=== PATIENT | female | born 1960 | race Caucasian/White ===

== ENCOUNTER → 2019-02-19 13:11 | Outpatient (CLI) | payer OTHER, SELFPAY ==
[2019-02-19 14:25] LABS: Blood Urea Nitrogen 21 mg/dL (7-17); Calcium 9.5 mg/dL (8.4-10.2); Carbon Dioxide 26 mmol/L (22-32); Chloride 106 mmol/L (98-107); Estimated Glomerular Filt Rate 57.1 mL/min (>60); Glucose 94 mg/dL (70-100); HEMOLYSIS < 15 (0-50); Potassium 4.6 mmol/L (3.4-5.1); Sodium 138 mmol/L (137-145)
== END ==
PROVIDERS: PCP Nurse Practitioner; Visit Provider Nurse Practitioner
DX: Z01.84 Encounter for antibody response examination (principal); R19.7 Diarrhea, unspecified; E78.5 Hyperlipidemia, unspecified
CPT/HCPCS: 36415; 80048; 80061; 86787

== ENCOUNTER → 2019-06-07 09:25 | Outpatient (CLI) | payer OTHER, SELFPAY ==
--- NOTE | 2019-06-07 | DI.MRI.S_ITS ---
PROCEDURE: MR KNEE LT WO CON INDICATIONS: Stiffness of left knee, not elsewhere classified TECHNIQUE: Noncontrast sagittal PD fast spin echo and T2 fast spin echo with fat saturation, sagittal 3-D FLASH with fat saturation; coronal T1 spin echo and PD fast spin echo with fat saturation, and axial PD fast spin echo with fat saturation through the knee. COMPARISON: None. FINDINGS: Image quality: Excellent. Menisci: Medial extrusion of the medial meniscus is present. Linear oblique high T2 signal intensity traverses the posterior horn medial meniscus, demonstrating superior and inferior articular surface extension. Lateral meniscus is intact. Cruciate ligaments: The anterior and posterior cruciate ligaments appear intact. Medial structures: The medial collateral ligament appears intact. Visualized portions of the pes anserinus tendons appear normal. No abnormal bursal fluid. Lateral structures: The lateral collateral ligament, long and short heads of the biceps femoris tendon appear intact. The popliteus tendon appears normal. Iliotibial band appears normal. Anterior structures: The quadriceps and patellar tendons appear intact. There is moderate lateral patellar subluxation. No femoral trochlear dysplasia or ventral trochlear prominence. There is mild edema in the superolateral aspect of the infrapatellar fat pad. Bones and cartilage: No bone marrow contusions or fractures. Subchondral cysts within the patellar apex and lateral patellar facet are present. Moderate tricompartmental periarticular osteophyte formation is present. Moderate articular cartilage loss diffusely overlies the weightbearing aspects of the medial femoral condyle and medial tibial plateau. Mild articular cartilage loss diffusely overlies the weightbearing aspects of the lateral femoral condyle and lateral tibial plateau. Severe articular cartilage loss overlies the lateral aspect of the lateral patellar facet and lateral femoral trochlea. Joint space: There is a moderate knee joint effusion. No Lawton's cyst. Normal appearing synovial plicae are incidentally noted. IMPRESSION: 1. 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 2. Medial compartment narrowing. 3. Knee joint effusion. 4 profundus consistent with lateral patellofemoral friction syndrome in the appropriate clinical setting. Dictated by: Sukhjinder Elliott M.D. on 06/08/2019 at 9:24 Approved by: Sukhjinder Elliott M.D. on 06/08/2019 at 9:28
== END ==
PROVIDERS: PCP Nurse Practitioner; Referring Provider Nurse Practitioner; Visit Provider Nurse Practitioner
DX: M25.562 Pain in left knee (principal); M25.662 Stiffness of left knee, not elsewhere classified; M17.12 Unilateral primary osteoarthritis, left knee; M25.462 Effusion, left knee
CPT/HCPCS: 73721

== ENCOUNTER 2019-07-14 15:00 | Outpatient (RCR) | payer OTHER, SELFPAY ==
--- NOTE | 2019-07-14 09:32 | PT.OIE ---
Current Diagnoses Unilateral primary osteoarthritis, left knee (07/09/19) Pain in left knee (07/09/19) Stiffness of left knee, not elsewhere classified (07/09/19) Past Medical History (Last Updated 05/28/19 @ 09:08 by ANURAG York) Allergies (Inactive ~1991) Left knee pain (Acute) Measles (Resolved ~1968) Mumps (Resolved ~1969) Past Surgical History (Last Updated 01/02/19 @ 20:51 by Traci Kern) Anesthesia (Resolved) H/O tubal ligation (Resolved ~07/1988) History of nasal septoplasty (Resolved ~10/1992) History of ureter repair (Resolved ~1974) Ureteral stent retained (Resolved) Visit Care Team Role Provider Type ANURAG York Attending Provider Advanced Manager Quality Compliance Primary Care Provider Referring Provider Specialty: [facility] Address: [address] [place] [address] Email: [email or web address] Physical Therapy Initial Evaluation PT-OP-A Visit Information Start: 07/09/19 12:55 Freq: Status: Active Protocol: Document 07/09/19 15:15 [facility] (Rec: 07/14/19 09:29 [facility] [email or web address]) Out-Patient Physical Therapy Visit Information Visit Information Visit Type Initial Evaluation Visit Note 58 year old with left knee OA and pain, weakness Visit Start Time 15:15 Visit Stop Time 16:00 Total Visit Minutes 45 Visit Number 1 Number of CAN SEALER Visits 0 Evaluation Information Evaluation Date 07/09/19 PT-OP-B Current Condition Start: 07/09/19 12:55 Freq: Status: Active Protocol: Document 07/09/19 15:20 [facility] (Rec: 07/09/19 15:39 [facility] [id number]) Current Condition History of Current Condition Onset Date June Current Complaints left sided knee pain, patella tendon and medial knee History of Current Condition Last june 2017 Danisha states she fell on her left knee and landed right on the front of her knee. Her knee progressively got worse. MRI was taken and showed OA of her left knee. She stopped doing javy quon do this past April as it was causing a lot of pain.. It involves a lot of kicking and lunging. Her knee feels better after stopping but still there is pain 3/10 that is a annoyance. Goes to the gym likes the rowing machine and biodex. Has tried leg extension and it bothers her. She has done the leg press and hamstring curls. IF sitting for long periods of time then she is really stiff, has to go up and down stairs sidedways. Can walk for a long time as long as she is not on steep hills Prior Treatments and Tests MRI showed OA Treatment Goals Patient/Caregiver Goals PT GOALS INCLUDE improving strength, Prior Functional Status Baseline Function- ADL's Independent Baseline Function- Mobility Independent PT-OP-C Subjective Start: 07/09/19 12:55 Freq: Status: Active Protocol: Document 07/09/19 15:15 [facility] (Rec: 07/14/19 09:29 [facility] [email or web address]) OP-PT Pain Assessment Location Left Medial Knee Pain Location Details medial knee and patella tendon Scale Used 3 PT-OP-F Manual Assessment Start: 07/09/19 12:55 Freq: Status: Active Protocol: Document 07/09/19 15:15 [facility] (Rec: 07/14/19 09:29 [facility] [email or web address]) Manual Assessments Soft Tissue Assessment Soft Tissue Mobility Assessment tightness of the left ITB, and quads, Tightness and tenderness at the left patella tendon Joint Mobility Assessment Joint Mobility Assessment Full joint ROM left knee PT-OP-G Mobility & Gait Start: 07/09/19 12:55 Freq: Status: Active Protocol: Document 07/09/19 15:15 [facility] (Rec: 07/14/19 09:29 [facility] [email or web address]) OP Gait Assessment Comments Gait Comments trendelenburg gait pattern with left sided weakness, some valgus angle of the left knee , pronation of bilateral arches Stair Climbing Evaluation Comments Stair Climbing Comments step to pattern with right leg leading PT-OP-J Posture/Palpation/Skin Start: 07/09/19 12:55 Freq: Status: Active Protocol: Document 07/09/19 15:15 [facility] (Rec: 07/14/19 09:29 [facility] [email or web address]) Palpation Assessment Location One Palpation Location patella tendon on the left Palpation Findings Soft Tissue Tightness, Tenderness PT-OP-K Range of Motion Start: 07/09/19 12:55 Freq: Status: Active Protocol: Document 07/09/19 15:15 [facility] (Rec: 07/14/19 09:29 [facility] [email or web address]) Knee Goniometric Range of Motion Knee Right Knee ROM WFL Yes Left Knee ROM WFL Yes PT-OP-M Strength Start: 07/09/19 12:55 Freq: Status: Active Protocol: Document 07/09/19 15:15 [facility] (Rec: 07/14/19 09:29 [facility] [email or web address]) Hip Strength Hip Manual Muscle Testing Right Abduction 3+ Fair+ External Rotation 3+ Fair+ Left Abduction 3 Fair External Rotation 3 Fair Knee Strength Knee Manual Muscle Testing Right Flexion (S2) 4 Good Extension (L3) 4 Good Left Flexion (S2) 4- Good- Extension (L3) 3+ Fair+ PT-OP-Q Treatments Start: 07/09/19 12:55 Freq: Status: Active Protocol: Document 07/09/19 15:15 [facility] (Rec: 07/14/19 09:29 [facility] [email or web address]) Cardio Equipment Bicycle (Upright) Duration (Minutes) 5 Resistance 2 Seat Position 5 Therapeutic Exercises Sidelying Exercises 1 Sidelying Exercise Name clam shells Side bilateral Reps/Minutes 3 x 10 reps Standing Exercises 2 Standing Exercise Name standing hip abduction Side bilateral Reps/Minutes 2 x 10 reps 1 Standing Exercise Name standing squat Side bilateral Reps/Minutes 2 x 10 reps Comments focus on form with hips back PT-OP-T Assessment and Plan Start: 07/09/19 12:55 Freq: Status: Active Protocol: Document 07/09/19 15:15 [facility] (Rec: 07/14/19 09:29 [facility] [email or web address]) Physical Therapy Assessment Rehab Potential Rehabilitation Potential Excellent Evaluation Complexity Number of Personal Factors/Comorbidities 0 Number of Body Systems Impaired 1-2 Clinical Presentation at Evaluation Stable Impairments Impairments Activity Tolerance,Balance, Functional Activities, Functional Mobility,Gait,Pain, Soft Tissue Mobility,Strength Other Impairments limited with activities such as squatting, unable to continue tia christiana do that involves kicking activities Goals Three Impairment inablility to perform a squat due to pain and weakness Usp Goal (LTG) Danisha demonstrates good form with a functional squat and is able to perform 10 standing squats without pain LTG Duration 8 weeks Two Impairment weakness of the VMO and gluteus medius Usp Goal (LTG) Danisha demonstrates improved strength of the VMO and gluteus medius to 4/5 or better for improved support of her knee and hip LTG Duration 8 weeks One Impairment left knee pain rated 3/10 in the patella tendon and medial joint line Short Term Goal (STG) Knee pain is reduced to 1-2/10 or less STG Duration 6 weeks Usp Goal (LTG) Danisha is able to walk a mile without a increase in pain LTG Duration 8 weeks plus Assessment Summary Assessment Danisha presents to physical therapy with c/o left sided knee pain rated 3/10 following a fall in April landing on the anterior aspect of her left knee. She has not been able to continue her Javy Christiana Do due to pain with the kicking movements. She has pain with squatting and walking and stairs. With examination today Danisha tests weak in her VMO musculature and lateral gluteus medius left greater than right. She has pronated feet combined with a trendelenburg on the left that can create medial knee pain. She is tender to palpation over the patella tendon and this is most likely due to her fall. Her knee ROM is WNL. Treatment will focus on reducing pain, improving strength and gait. Danisha is a good candidate for PT Physical Therapy Plan Frequency and Duration Frequency of Treatment 2x/Week Duration of Treatment 8 Plan of Care Start Date 07/09/19 Plan of Care End Date 09/03/19 Therapeutic Interventions Therapeutic Interventions Home Exercise Program,Manual Therapy,Neuromuscular Re- education,Patient/Caregiver Education,Self-Care/Home Management,Soft Tissue Mobilization,Taping, Therapeutic Exercises Modalities Cold Pack/Ice Massage, Ultrasound Next Visit Focus/Plan Next Note Type Treatment Note Next Visit Plan patella tendon TFM and patella mobs, quad and VMO strengthening, gluteus medius strengthening, balance training
--- NOTE | 2019-07-14 09:33 | PT.OPPOC ---
Physical, Occupational & Speech Therapy At [facility] Current Diagnoses Unilateral primary osteoarthritis, left knee (07/09/19) Pain in left knee (07/09/19) Stiffness of left knee, not elsewhere classified (07/09/19) Visit Care Team Role Provider Type ANURAG York Attending Provider Advanced Customer Experience Specialist Primary Care Provider Referring Provider Specialty: [facility] Practice Address: [address] [place] [address], [facility] Email: [email or web address] Plan Of Care PT-OP-T Assessment and Plan Start: 07/09/19 12:55 Freq: Status: Active Protocol: Document 07/09/19 15:15 [facility] (Rec: 07/14/19 09:29 [facility] [email or web address]) Physical Therapy Assessment Rehab Potential Rehabilitation Potential Excellent Evaluation Complexity Number of Personal Factors/Comorbidities 0 Number of Body Systems Impaired 1-2 Clinical Presentation at Evaluation Stable Impairments Impairments Activity Tolerance,Balance, Functional Activities, Functional Mobility,Gait,Pain, Soft Tissue Mobility,Strength Other Impairments limited with activities such as squatting, unable to continue tia christiana do that involves kicking activities Goals Three Impairment inability to perform a squat due to pain and weakness Cheese Blender Goal (LTG) Danisha demonstrates good form with a functional squat and is able to perform 10 standing squats without pain LTG Duration 8 weeks Two Impairment weakness of the VMO and gluteus medius Cheese Blender Goal (LTG) Danisha demonstrates improved strength of the VMO and gluteus medius to 4/5 or better for improved support of her knee and hip LTG Duration 8 weeks One Impairment left knee pain rated 3/10 in the patella tendon and medial joint line Short Term Goal (STG) Knee pain is reduced to 1-2/10 or less STG Duration 6 weeks Half-Way Goal (LTG) Danisha is able to walk a mile without a increase in pain LTG Duration 8 weeks plus Assessment Summary Assessment Danisha presents to physical therapy with c/o left sided knee pain rated 3/10 following a fall in April landing on the anterior aspect of her left knee. She has not been able to continue her Kevin Christiana Do due to pain with the kicking movements. She has pain with squatting and walking and stairs. With examination today Danisha tests weak in her VMO musculature and lateral gluteus medius left greater than right. She has pronated feet combined with a trendelenburg on the left that can create medial knee pain. She is tender to palpation over the patella tendon and this is most likely due to her fall. Her knee ROM is WNL. Treatment will focus on reducing pain, improving strength and gait. Danisha is a good candidate for PT Physical Therapy Plan Frequency and Duration Frequency of Treatment 2x/Week Duration of Treatment 8 Plan of Care Start Date 07/09/19 Plan of Care End Date 09/03/19 Therapeutic Interventions Therapeutic Interventions Home Exercise Program,Manual Therapy,Neuromuscular Re- education,Patient/Caregiver Education,Self-Care/Home Management,Soft Tissue Mobilization,Taping, Therapeutic Exercises Modalities Cold Pack/Ice Massage, Ultrasound Next Visit Focus/Plan Next Note Type Treatment Note Next Visit Plan patella tendon TFM and patella mobs, quad and VMO strengthening, gluteus medius strengthening, balance training Plan of Care Dates Plan of Care Start Date 07/09/19 Plan of Care End Date 09/03/19 Electronically Signed by: Luly Angeles, PT 07/14/19 0933 Please Sign and Return: I have reviewed this Plan of Care and certify that the skilled therapy services above are required to meet the patient?s needs. Physician Signature Date Printed Name and Credentials Clinical Instructor Signature Printed Name and Credentials
--- NOTE | 2019-07-14 16:09 | PT.OTN ---
Current Diagnoses Unilateral primary osteoarthritis, left knee (07/14/19) Pain in left knee (07/14/19) Stiffness of left knee, not elsewhere classified (07/14/19) Physical Therapy Treatment Note PT-OP-A Visit Information Start: 07/09/19 12:55 Freq: Status: Active Protocol: Document 07/14/19 14:50 [facility] (Rec: 07/14/19 16:08 [facility] [id number]) Out-Patient Physical Therapy Visit Information Visit Information Visit Type Treatment Note Visit Start Time 14:50 Visit Stop Time 15:46 Total Visit Minutes 56 Visit Number 2 Evaluation Information Evaluation Date 07/09/19 PT-OP-B Current Condition Start: 07/09/19 12:55 Freq: Status: Active Protocol: Document 07/09/19 15:20 [facility] (Rec: 07/09/19 15:39 [facility] [id number]) Current Condition History of Current Condition Onset Date June Current Complaints left sided knee pain, patella tendon and medial knee History of Current Condition Last june 2017 Danisha states she fell on her left knee and landed right on the front of her knee. Her knee progressively got worse. MRI was taken and showed OA of her left knee. She stopped doing javy quon do this past April as it was causing a lot of pain.. It involves a lot of kicking and lunging. Her knee feels better after stopping but still there is pain 3/10 that is a annoyance. Goes to the gym likes the rowing machine and biodex. Has tried leg extension and it bothers her. She has done the leg press and hamstring curls. IF sitting for long periods of time then she is really stiff, has to go up and down stairs sidedways. Can walk for a long time as long as she is not on steep hills Prior Treatments and Tests MRI showed OA Treatment Goals Patient/Caregiver Goals PT GOALS INCLUDE improving strength, Prior Functional Status Baseline Function- ADL's Independent Baseline Function- Mobility Independent PT-OP-C Subjective Start: 07/09/19 12:55 Freq: Status: Active Protocol: Document 07/14/19 14:50 [facility] (Rec: 07/14/19 16:08 [facility] [id number]) OP-PT Subjective Patient Comments Patient Comments States her pain is worse since doing the ex's. Pain is 6-7/ 10. States squat ex caused more pain. PT-OP-F Manual Assessment Start: 07/09/19 12:55 Freq: Status: Active Protocol: Document 07/09/19 15:15 [facility] (Rec: 07/14/19 09:29 [facility]PLAC[facility] BY [facility] [email or web address]) Manual Assessments Soft Tissue Assessment Soft Tissue Mobility Assessment tightness of the left ITB, and quads, Tightness and tenderness at the left patella tendon Joint Mobility Assessment Joint Mobility Assessment Full joint ROM left knee PT-OP-G Mobility & Gait Start: 07/09/19 12:55 Freq: Status: Active Protocol: Document 07/09/19 15:15 [facility] (Rec: 07/14/19 09:29 REPLACED BY [facility] [email or web address]) OP Gait Assessment Comments Gait Comments trendelenburg gait pattern with left sided weakness, some valgus angle of the left knee , pronation of bilateral arches Stair Climbing Evaluation Comments Stair Climbing Comments step to pattern with right leg leading PT-OP-J Posture/Palpation/Skin Start: 07/09/19 12:55 Freq: Status: Active Protocol: Document 07/09/19 15:15 [facility] (Rec: 07/14/19 09:29 REPLACED BY [facility] [email or web address]) Palpation Assessment Location One Palpation Location patella tendon on the left Palpation Findings Soft Tissue Tightness, Tenderness PT-OP-K Range of Motion Start: 07/09/19 12:55 Freq: Status: Active Protocol: Document 07/09/19 15:15 [facility] (Rec: 07/14/19 09:29 [facility]PLACED BY [facility] [email or web address]) Knee Goniometric Range of Motion Knee Right Knee ROM WFL Yes Left Knee ROM WFL Yes PT-OP-M Strength Start: 07/09/19 12:55 Freq: Status: Active Protocol: Document 07/09/19 15:15 [facility] (Rec: 07/14/19 09:29 REPLACED BY [facility] [email or web address]) Hip Strength Hip Manual Muscle Testing Right Abduction 3+ Fair+ External Rotation 3+ Fair+ Left Abduction 3 Fair External Rotation 3 Fair Knee Strength Knee Manual Muscle Testing Right Flexion (S2) 4 Good Extension (L3) 4 Good Left Flexion (S2) 4- Good- Extension (L3) 3+ Fair+ PT-OP-Q Treatments Start: 07/09/19 12:55 Freq: Status: Active Protocol: Document 07/14/19 14:50 [facility] (Rec: 03/10/20 16:08 [facility] [id number]) Therapeutic Exercises Supine Exercises 3 Supine Exercise Name SAQ Side left Resistance 5# Reps/Minutes 15 x 2 2 Supine Exercise Name SLR @ 12 & 10 O'Clock foot position Reps/Minutes 15x each position 1 Supine Exercise Name QS Side left Reps/Minutes 15x Sidelying Exercises 1 Sidelying Exercise Name clam shells Side bilateral Reps/Minutes 3 x 10 reps Manual Therapy Treatment Soft Tissue Mobilization PFM Body Location L infrapatellar tendon Friction massage Mobilization Type Cross-Friction Intensity/Depth Moderate Body Position Supine Joint Mobilizations L Patellar Mob Joint L patellar mob Direction all directions Grade II Body Position Supine Reps/Duration 2' Taping 2 Body Location L infrapatellar tendon Treatment Focus Space correction Type of Tape Kinesio Tape Skin Inspection Good Comments 3 I-strips over knee while in full flexion. 1 Body Location L medial knee Treatment Focus Stability Type of Tape Kinesio Tape Skin Inspection Good Comments 2 I-Strips crossing at medial knee Manual Techniques 1 Type MWM with 4 step up Body Location L knee Body Position Going up 4 step Reps/Duration 2x, 10x Comments AP of Tib/Fib & PA of Distal Femur Self-Care/Home Management Treatment Education Patient Education Home Exercise Program Other Education Instructed pt in safe and proper removal of K-tape to give 24hr skin rest from tape. Educated pt in skin allergic reaction symptoms with I/S to remove immediately if symptoms present. Activities Self-Care/Home Management Activities Pt I/S to hold on squat exercise and to do QS, SAQ & 12 & 10 O'Clock SLR. PT-OP-R Modalities Start: 07/14/19 14:30 Freq: Status: Active Protocol: Document 07/14/19 14:50 [facility] (Rec: 07/14/19 16:08 [facility] [id number]) Hot Pack/Cold Pack Treatment Cold Pack Location L knee Patient Position Hooklying Treatment Duration (minutes) 10 Comments Cryocuff Ultrasound Therapy Treatment L knee Treatment Duration (minutes) 8 Patient Position Supine Frequency Setting (mHz) 1 Duty Cycle 50% Intensity Setting (w/cm2) 1.0 Comments US to L medial and infrapatellar PT-OP-T Assessment and Plan Start: 07/09/19 12:55 Freq: Status: Active Protocol: Document 07/14/19 14:50 [facility] (Rec: 07/14/19 16:08 [facility] [id number]) Physical Therapy Assessment Goals Three Impairment inablility to perform a squat due to pain and weakness Correction Goal (LTG) Danisha demonstrates good form with a functional squat and is able to perform 10 standing squats without pain LTG Duration 8 weeks Two Impairment weakness of the VMO and gluteus medius Correction Goal (LTG) Danisha demonstrates improved strength of the VMO and gluteus medius to 4/5 or better for improved support of her knee and hip LTG Duration 8 weeks One Impairment left knee pain rated 3/10 in the patella tendon and medial joint line Short Term Goal (STG) Knee pain is reduced to 1-2/10 or less STG Duration 6 weeks Automated Process Operator Goal (LTG) Danisha is able to walk a mile without a increase in pain LTG Duration 8 weeks plus Assessment Summary Assessment L knee pain 6-7/10 today due to shallow squat ex; therefore DC'd shallow squats for HEP. Pt appears to have movement dysfunction with Femur too far foward on Tib/Fib during knee extension. Pt's infrapatellar pain appears to be in the area of the fat pads today, but decreased after Ultrasound. She was able to step up a 4 step without pain during MWM, 6 step caused pain. Patella tendon did not appear to need TFM due to pain more at fat pads, and patella appeared to show equal mobility today. Physical Therapy Plan Frequency and Duration Frequency of Treatment 2x/Week Duration of Treatment 8 Plan of Care Start Date 07/09/19 Plan of Care End Date 09/03/19 Next Visit Focus/Plan Next Note Type Treatment Note Next Visit Plan Issue HEP of medial quad strengthening (QS, SAQ & SLR @ 12 & 10 O'Clock foot position ). Assess response to K-tape and continue as needed. Quad and VMO strengthening, gluteus medius strengthening, balance training.
--- NOTE | 2020-01-11 14:05 | PT.OPDS ---
Current Diagnoses Unilateral primary osteoarthritis, left knee (07/14/19) Pain in left knee (07/14/19) Stiffness of left knee, not elsewhere classified (07/14/19) Visit Care Team Role Provider Type ANURAG [place] Attending Provider [employer] Specialist Primary Care Provider Referring Provider Specialty: Family Practice Address: [address] [place] [address], [id number] Email: [email or web address] Visit Number Visit Number 2 Discharge Summary PT-OP-B Current Condition Start: 07/09/19 12:55 Freq: Status: Active Protocol: Document 07/09/19 15:20 AMH (Rec: 07/09/19 15:39 AMH [id number]) Current Condition History of Current Condition Onset Date June Current Complaints left sided knee pain, patella tendon and medial knee History of Current Condition Last june 2017 Danisha states she fell on her left knee and landed right on the front of her knee. Her knee progressively got worse. MRI was taken and showed OA of her left knee. She stopped doing javy quon do this past April as it was causing a lot of pain.. It involves a lot of kicking and lunging. Her knee feels better after stopping but still there is pain 3/10 that is a annoyance. Goes to the gym likes the rowing machine and [employer]. Has tried leg extension and it bothers her. She has done the leg press and hamstring curls. IF sitting for long periods of time then she is really stiff, has to go up and down stairs sidedways. Can walk for a long time as long as she is not on steep hills Prior Treatments and Tests MRI showed OA Treatment Goals Patient/Caregiver Goals PT GOALS INCLUDE improving strength, Prior Functional Status Baseline Function- ADL's Independent Baseline Function- Mobility Independent PT-OP-C Subjective Start: 07/09/19 12:55 Freq: Status: Active Protocol: Document 07/14/19 14:50 LRN (Rec: 07/14/19 16:08 LRN [id number]) OP-PT Subjective Patient Comments Patient Comments States her pain is worse since doing the ex's. Pain is 6-7/ 10. States squat ex caused more pain. PT-OP-F Manual Assessment Start: 07/09/19 12:55 Freq: Status: Active Protocol: Document 07/09/19 15:15 AMH (Rec: 07/14/19 09:29 [facility] [id number]) Manual Assessments Soft Tissue Assessment Soft Tissue Mobility Assessment tightness of the left ITB, and quads, Tightness and tenderness at the left patella tendon Joint Mobility Assessment Joint Mobility Assessment Full joint ROM left knee PT-OP-G Mobility & Gait Start: 07/09/19 12:55 Freq: Status: Active Protocol: Document 07/09/19 15:15 AMH (Rec: 07/14/19 09:29 [facility] [id number]) OP Gait Assessment Comments Gait Comments trendelenburg gait pattern with left sided weakness, some valgus angle of the left knee , pronation of bilateral arches Stair Climbing Evaluation Comments Stair Climbing Comments step to pattern with right leg leading PT-OP-J Posture/Palpation/Skin Start: 07/09/19 12:55 Freq: Status: Active Protocol: Document 07/09/19 15:15 AMH (Rec: 07/14/19 09:29 [facility] [id number]) Palpation Assessment Location One Palpation Location patella tendon on the left Palpation Findings Soft Tissue Tightness, Tenderness PT-OP-K Range of Motion Start: 07/09/19 12:55 Freq: Status: Active Protocol: Document 07/09/19 15:15 AMH (Rec: 07/14/19 09:29 [facility] [id number]) Knee Goniometric Range of Motion Knee Right Knee ROM WFL Yes Left Knee ROM WFL Yes PT-OP-M Strength Start: 07/09/19 12:55 Freq: Status: Active Protocol: Document 07/09/19 15:15 AMH (Rec: 07/14/19 09:29 [facility] [id number]) Hip Strength Hip Manual Muscle Testing Right Abduction 3+ Fair+ External Rotation 3+ Fair+ Left Abduction 3 Fair External Rotation 3 Fair Knee Strength Knee Manual Muscle Testing Right Flexion (S2) 4 Good Extension (L3) 4 Good Left Flexion (S2) 4- Good- Extension (L3) 3+ Fair+ PT-OP-T Assessment and Plan Start: 07/09/19 12:55 Freq: Status: Active Protocol: Document 01/11/20 14:01 AMH (Rec: 01/11/20 14:05 [facility] [id number]) Physical Therapy Assessment Assessment Summary Assessment The patient has not been seen in PT since July 13 due to the Covid 19 pandemic. She request to be DC from PT at this time. Physical Therapy Plan Discharge Physical Therapy Discharge Reasons Patient Request
== END 2020-01-12 10:48 ==
LOC: PHYS 15:00
PROVIDERS: PCP Nurse Practitioner; Referring Provider Nurse Practitioner; Visit Provider Nurse Practitioner
DX: M25.662 Stiffness of left knee, not elsewhere classified (principal); M25.562 Pain in left knee; M17.12 Unilateral primary osteoarthritis, left knee
CPT/HCPCS: 97010; 97035; 97110; 97140; 97161

== ENCOUNTER 2020-04-13 10:23 | Emergency (ER) | payer OTHER, SELFPAY ==
--- NOTE | 2020-04-13 10:26 | DI.US.S_ITS ---
PROCEDURE: US PERIPH VENOUS LOW EXTREM LT INDICATIONS: LEFT LEG SWELLING TECHNIQUE: Real-time imaging, as well as color and pulse Doppler interrogation, were performed of the lower extremity deep veins from the inguinal ligament to the popliteal fossa. COMPARISON: None. FINDINGS: The common femoral, femoral and popliteal veins are normally compressible, and free of intraluminal thrombus. Color and pulse Doppler demonstrate normal phasic intraluminal flow. There is normal augmentation response to distal compression maneuver. Soft tissue edema can be seen within the region of the calf and ankle. IMPRESSION: Negative for deep venous thrombosis. Dictated by: Ganga Duncan M.D. on 04/13/2020 at 10:01 Approved by: Ganga Duncan M.D. on 04/13/2020 at 10:01
[2020-04-13 10:56] VITALS: BP 136/85; PULSE 80; RESP 16; TEMP 36.7; O2SAT 100
[2020-04-13 12:22] LABS: Add Manual Diff / Slide Review NO; Basophils Absolute Auto 0 /uL (0-100); Eosinophils Absolute Auto 200 /uL (0-450); Eosinophils Percent Auto 4.6 % (2-4); Hematocrit 44.2 % (36-46); Hemoglobin 14.5 g/dL (12.0-16.0); Lymphocytes Absolute Auto 1400 /uL (1100-4500); Lymphocytes Percent Auto 28.6 % (25-40); Mean Corpuscular HGB Conc 32.8 % (30-36); Mean Corpuscular Hemoglobin 29.7 PG (26-34); Mean Corpuscular Volume 90.7 fL (80-100); Monocytes Absolute Auto 300 /uL (0-900); Monocytes Percent Auto 6.5 % (3-14); Neutrophils Absolute Auto 2800 /uL (1500-7000); Neutrophils Percent Auto 59.3 % (50-75); Platelet Count 208 X10^3/uL (150-400); Red Blood Cell Count 4.87 X10^6/uL (4.0-5.2); Red Cell Distribution Width 14.1 % (11.6-14.8); White Blood Cell Count 4.7 X10^3/uL (4.5-11.0)
[2020-04-13 12:30] LABS: Prothrombin Time 11.1 SECONDS (10.1-12.7)
[2020-04-13 12:33] LABS: PTT Partial Thromboplastin Tim 29 SECONDS (26.4-36.2)
[2020-04-13 12:39] LABS: BUN Creatinine Ratio 18.9 (6-22); Blood Urea Nitrogen 18 mg/dL (7-17); Calcium 10.6 mg/dL (8.4-10.2); Carbon Dioxide 27 mmol/L (22-32); Chloride 104 mmol/L (98-107); Estimated Glomerular Filt Rate > 60.0 mL/min (>60); Glucose 92 mg/dL (70-100); HEMOLYSIS < 15 (0-50); Sodium 141 mmol/L (137-145)
[2020-04-13 12:46] LABS: NT-proBNP (BNP-Adult 18+) 44 pg/mL (<125)
[2020-04-13 13:06] VITALS: BP 130/84; PULSE 78; RESP 16; O2SAT 97
--- NOTE | 2020-04-13 13:49 | ED.EXTPRO ---
HPI - Extremity Problem <Nicolette AlmazanBARBP-BC - Last Filed: 04/13/20 16:13> General Chief complaint: Extremity Problem,Nontraumatic Stated complaint: Swelling in lower Left leg Time Seen by Provider: 04/13/20 10:25 Source: patient Mode of arrival: Wheelchair Limitations: no limitations History of Present Illness HPI Narrative: The patient is a 59-year-old female nonsmoker with history of hyperglycemia and GERD who presents with a chief complaint of left lower leg swelling and pain for the past 4 days. She denies any personal history of blood clots. She denies any hormone treatments, she denies any recent episodes of immobility such as flights or hospitalizations. She saw her primary care provider this morning he was concerned about a DVT. She states that she usually wears pressure socks, but has been having trouble getting her left pressure sock on due to the swelling. She denies any redness. She denies any falls or trauma. She denies any chest pain or shortness of breath. Related Data Home Medications Medication Instructions Recorded Confirmed aspirin 325 mg PO QDAY #0 09/26/16 04/13/20 azelastine 2 spray INTRANASAL BID #0 09/26/16 04/13/20 omega 2-hac-yyd-fish oil [Fish Oil] 1,000 mg PO Q DAY #0 09/26/16 04/13/20 Lactobac See Rx Instructions PO .COMPLEX 10/24/17 04/13/20 41-Bifido.bifidum,lactis-FOS 111 cap mg(25 billion cell) capsule methylcellulose (laxative) 500 mg 500 mg PO BID tab 10/24/17 04/13/20 tablet niacin 100 mg tablet 100 mg PO DAILY 02/19/19 04/13/20 antiarthritic combination no.2 900 mg PO 05/28/19 04/13/20 mg tablet Previous Rx's Medication Instructions Recorded metronidazole 1 % topical gel 1 applictn TOP BID #60 gram 12/08/18 atorvastatin 20 mg tablet 20 mg PO HS #90 tab 07/15/19 hydrochlorothiazide 25 mg tablet 12.5 mg PO QDAY #45 tab 07/15/19 Allergies Allergy/AdvReac Type Severity Reaction Status Date / Time sulfamethoxazole Allergy Unknown HIVES, Verified 04/13/20 09:47 [From BACTRIM] SORES IN MY THROAT trimethoprim [From BACTRIM] Allergy Unknown HIVES, Verified 04/13/20 09:47 SORES IN MY THROAT guaifenesin [From Mucinex] Allergy Verified 04/13/20 09:47 Review of Systems <ROSSY Nuñez - Last Filed: 04/13/20 16:13> Review of Systems Narrative: GENERAL: Denies chills, fatigue, malaise, fever, sweats. HEENT: Denies sinus pain, ear pain, sore throat, difficulty swallowing, dizziness. RESPIRATORY: Denies dyspnea, cough, wheezing, hemoptysis, sputum. CARDIOVASCULAR: Denies chest pain, palpitations, orthopnea, edema, GASTROINTESTINAL: Denies nausea, vomiting, abdominal pain, diarrhea, constipation, melena. : Denies dysuria, frequency, incontinence, hematuria, urinary retention. MUSCULOSKELETAL: See HPI SKIN: Denies rash, skin lesions, or other NEUROLOGIC: Denies weakness, headache, numbness, change in speech, confusion, seizures, incoordination. PSYCHIATRIC: No concerning psychosocial issues. 12 point review of systems is negative except for those stated above Patient History <ROSSY Nuñez - Last Filed: 04/13/20 16:13> Medical History Allergies (~1991) Left knee pain Measles (~1968) Mumps (~1969) Surgical History Anesthesia H/O tubal ligation (~07/1988) History of nasal septoplasty (~10/1992) History of ureter repair (~1974) Ureteral stent retained Family History Mother Hypertension Heart disease Hyperlipidemia Father Alcoholism Brother Diabetes mellitus Hyperlipidemia Hypertension Sister Hyperlipidemia Hypertension Grandfather Heart disease Grandmother Heart disease Hyperlipidemia Hypertension Social History Smoking Status: Never smoker Smoking Status: Never smoker alcohol intake frequency: a few times a month Substance Use Type: does not use Exam <ROSSY Nuñez - Last Filed: 04/13/20 16:13> Narrative Exam Narrative: GENERAL: This is a well-nourished, well-developed patient, in no acute distress HEAD: Atraumatic. Normocephalic. No temporal or scalp tenderness. EYES: Pupils equal round and reactive. Extraocular motions intact. No scleral icterus. No injection or drainage. ENT: Nose without bleeding, purulent drainage or septal hematoma. Wearing a mask Uvula midline. Airway patent. NECK: Trachea midline. No JVD or lymphadenopathy. Supple, nontender, no meningeal signs. CARDIOVASCULAR: Regular rate and rhythm RESPIRATORY: Clear to auscultation. Breath sounds equal bilaterally. No wheezes, rales, or rhonchi. No cough. No increased respiratory effort. No accessory muscle use. EXTREMITIES: Bilateral pedal pulses intact. No erythema rash or abrasions noted over left lower leg. Has slight peripheral edema noted bilaterally, left worse than right. BACK: Nontender without deformity or crepitance. No flank tenderness. NEURO: AOx3. Stable gait. SKIN: No rash or erythema on visible skin Initial Vital Signs Initial Vital Signs: Vital Signs Temperature 98.0 F 04/13/20 10:56 Pulse Rate 80 04/13/20 10:56 Respiratory Rate 16 04/13/20 10:56 Blood Pressure 136/85 04/13/20 10:56 Pulse Oximetry 100 04/13/20 10:56 <Kris Ralph DO - Last Filed: 04/13/20 16:25> Initial Vital Signs Initial Vital Signs: Vital Signs Temperature 98.0 F 04/13/20 10:56 Pulse Rate 80 04/13/20 10:56 Respiratory Rate 16 04/13/20 10:56 Blood Pressure 136/85 04/13/20 10:56 Pulse Oximetry 100 04/13/20 10:56 Scores <FRANCY Nuñez - Last Filed: 04/13/20 16:13> GCS Perez coma scale eye opening: Spontaneous [place] coma scale verbal response: Orientated Perez coma scale motor response: Obey commands [place] coma scale total score: 15 Course <FRANCY Nuñez - Last Filed: 04/13/20 16:13> Orders Ordered: ED Orders 04/13/20 10:26 US periph venous low extrem lt Stat 04/13/20 12:10 Basic Metabolic Panel Stat Complete Blood Count AUTO DIFF Stat NT-proBNP (BNP-Adult 18+) Stat Partial Thromboplastin Time Stat Prothrombin Time INR Stat Vital Signs Vital signs: Vital Signs - 8 hr 04/13/20 10:56 04/13/20 13:06 Temperature 98.0 F Pulse Rate 80 78 Respiratory Rate 16 16 Blood Pressure 136/85 130/84 Pulse Oximetry 100 97 <Kris Ralph DO - Last Filed: 04/13/20 16:25> Orders Ordered: ED Orders 04/13/20 10:26 US periph venous low extrem lt Stat 04/13/20 12:10 Basic Metabolic Panel Stat Complete Blood Count AUTO DIFF Stat NT-proBNP (BNP-Adult 18+) Stat Partial Thromboplastin Time Stat Prothrombin Time INR Stat Vital Signs Vital signs: Vital Signs - 8 hr 04/13/20 10:56 04/13/20 13:06 Temperature 98.0 F Pulse Rate 80 78 Respiratory Rate 16 16 Blood Pressure 136/85 130/84 Pulse Oximetry 100 97 MDM - Extremity (Nontraumatic) <VERONICA Nuñez-BC - Last Filed: 04/13/20 16:13> Lab Data Result diagrams: 04/13/20 12:10 04/13/20 12:10 Labs: Lab Results 04/13/20 04/13/20 04/13/20 Range/Units 12:10 12:10 12:10 WBC 4.7 (4.5-11.0) X10^3/uL RBC 4.87 (4.0-5.2) X10^6/uL Hgb 14.5 (12.0-16.0) g/dL Hct 44.2 (36-46) % MCV 90.7 (80-100) fL MCH 29.7 (26-34) PG MCHC 32.8 (30-36) % RDW 14.1 (11.6-14.8) % Plt Count 208 (150-400) X10^3/uL Neut % (Auto) 59.3 (50-75) % Lymph % (Auto) 28.6 (25-40) % Tate % (Auto) 6.5 (3-14) % Eos % (Auto) 4.6 H (2-4) % Baso % (Auto) 1.0 (0-2) % Neut # (Auto) 2800 (1478-4418) /uL Lymph # (Auto) 1400 (1339-5669) /uL Tate # (Auto) 300 (0-900) /uL Eos # (Auto) 200 (0-450) /uL Baso # (Auto) 0 (0-100) /uL PT 11.1 (10.1-12.7) SECONDS INR 1.0 (0.9-1.3) APTT 29 (26.4-36.2) SECONDS Sodium 141 (137-145) mmol/L Potassium 4.0 (3.4-5.1) mmol/L Chloride 104 (98-107) mmol/L Carbon Dioxide 27 (22-32) mmol/L BUN 18 H (7-17) mg/dL Creatinine 0.95 (0.52-1.04) mg/dL Estimated GFR > 60.0 (>60) mL/min BUN/Creatinine Ratio 18.9 (6-22) Glucose 92 (70-100) mg/dL Calcium 10.6 H (8.4-10.2) mg/dL NT-Pro-B Natriuret Pep (<125) pg/mL 04/13/20 Range/Units 12:10 WBC (4.5-11.0) X10^3/uL RBC (4.0-5.2) X10^6/uL Hgb (12.0-16.0) g/dL Hct (36-46) % MCV (80-100) fL MCH (26-34) PG MCHC (30-36) % RDW (11.6-14.8) % Plt Count (150-400) X10^3/uL Neut % (Auto) (50-75) % Lymph % (Auto) (25-40) % Tate % (Auto) (3-14) % Eos % (Auto) (2-4) % Baso % (Auto) (0-2) % Neut # (Auto) (7405-7768) /uL Lymph # (Auto) (8016-5021) /uL Tate # (Auto) (0-900) /uL Eos # (Auto) (0-450) /uL Baso # (Auto) (0-100) /uL PT (10.1-12.7) SECONDS INR (0.9-1.3) APTT (26.4-36.2) SECONDS Sodium (137-145) mmol/L Potassium (3.4-5.1) mmol/L Chloride (98-107) mmol/L Carbon Dioxide (22-32) mmol/L BUN (7-17) mg/dL Creatinine (0.52-1.04) mg/dL Estimated GFR (>60) mL/min BUN/Creatinine Ratio (6-22) Glucose (70-100) mg/dL Calcium (8.4-10.2) mg/dL NT-Pro-B Natriuret Pep 44 (<125) pg/mL Imaging Data US - DVT: Radiologist's Impression: [address] [place] [id number] ReportSigned Patient: Danisha Landry [facility]#: [id number]: 2Acct:[id number]/Sex: 59 / FDate of Service: 04/13/20Loc: EDAccession Number: [id number] Procedure: US periph venous low extrem lt Ordering Provider: Kris Ralph D.O. PROCEDURE: US PERIPH VENOUS LOW EXTREM LT INDICATIONS: LEFT LEG SWELLING TECHNIQUE: Real-time imaging, as well as color and pulse Doppler interrogation, were performed of the lower extremity deep veins from the inguinal ligament to the popliteal fossa. COMPARISON: None. FINDINGS: The common femoral, femoral and popliteal veins are normally compressible, and free of intraluminal thrombus. Color and pulse Doppler demonstrate normal phasic intraluminal flow. There is normal augmentation response to distal compression maneuver. Soft tissue edema can be seen within the region of the calf and ankle. IMPRESSION: Negative for deep venous thrombosis. Dictated by: Ganga Duncan M.D. on 04/13/2020 at 10:01 Approved by: Ganga Duncan M.D. on 04/13/2020 at 10:01 [facility] Narrative Medical decision making narrative: The patient is a 51-year-old female who presents with a chief complaint of left lower leg pain and swelling and concern for deep vein thrombosis. Ultrasound results negative. Lab work is grossly within normal limits. She denies any chest pain shortness of breath and is hemodynamically stable throughout her stay in the emergency department. Encouraged follow-up with primary care provider in the next few days as well as come back to the ER for acute concerns such as chest pain, shortness of breath, concern of blood clot stroke etcetera. Patient has no questions or concerns upon discharge and states understanding return precautions as well as follow-up care. <Kris Ralph, DO - Last Filed: 04/13/20 16:25> Lab Data Labs: Lab Results 04/13/20 04/13/20 04/13/20 Range/Units 12:10 12:10 12:10 WBC 4.7 (4.5-11.0) X10^3/uL RBC 4.87 (4.0-5.2) X10^6/uL Hgb 14.5 (12.0-16.0) g/dL Hct 44.2 (36-46) % MCV 90.7 (80-100) fL MCH 29.7 (26-34) PG MCHC 32.8 (30-36) % RDW 14.1 (11.6-14.8) % Plt Count 208 (150-400) X10^3/uL Neut % (Auto) 59.3 (50-75) % Lymph % (Auto) 28.6 (25-40) % Tate % (Auto) 6.5 (3-14) % Eos % (Auto) 4.6 H (2-4) % Baso % (Auto) 1.0 (0-2) % Neut # (Auto) 2800 (7822-5524) /uL Lymph # (Auto) 1400 (2046-3746) /uL Tate # (Auto) 300 (0-900) /uL Eos # (Auto) 200 (0-450) /uL Baso # (Auto) 0 (0-100) /uL PT 11.1 (10.1-12.7) SECONDS INR 1.0 (0.9-1.3) APTT 29 (26.4-36.2) SECONDS Sodium 141 (137-145) mmol/L Potassium 4.0 (3.4-5.1) mmol/L Chloride 104 (98-107) mmol/L Carbon Dioxide 27 (22-32) mmol/L BUN 18 H (7-17) mg/dL Creatinine 0.95 (0.52-1.04) mg/dL Estimated GFR > 60.0 (>60) mL/min BUN/Creatinine Ratio 18.9 (6-22) Glucose 92 (70-100) mg/dL Calcium 10.6 H (8.4-10.2) mg/dL NT-Pro-B Natriuret Pep (<125) pg/mL 04/13/20 Range/Units 12:10 WBC (4.5-11.0) X10^3/uL RBC (4.0-5.2) X10^6/uL Hgb (12.0-16.0) g/dL Hct (36-46) % MCV (80-100) fL MCH (26-34) PG MCHC (30-36) % RDW (11.6-14.8) % Plt Count (150-400) X10^3/uL Neut % (Auto) (50-75) % Lymph % (Auto) (25-40) % Tate % (Auto) (3-14) % Eos % (Auto) (2-4) % Baso % (Auto) (0-2) % Neut # (Auto) (7211-1178) /uL Lymph # (Auto) (9926-2434) /uL Tate # (Auto) (0-900) /uL Eos # (Auto) (0-450) /uL Baso # (Auto) (0-100) /uL PT (10.1-12.7) SECONDS INR (0.9-1.3) APTT (26.4-36.2) SECONDS Sodium (137-145) mmol/L Potassium (3.4-5.1) mmol/L Chloride (98-107) mmol/L Carbon Dioxide (22-32) mmol/L BUN (7-17) mg/dL Creatinine (0.52-1.04) mg/dL Estimated GFR (>60) mL/min BUN/Creatinine Ratio (6-22) Glucose (70-100) mg/dL Calcium (8.4-10.2) mg/dL NT-Pro-B Natriuret Pep 44 (<125) pg/mL Discharge Plan Departure Patient Disposition: Home Clinical Impression: Left leg swelling Instructions: DI for Peripheral Edema -- Bilateral, DI for Peripheral Edema-Unilateral Activity Restrictions/Additional Instructions: Thank you for trusting us with your care today. Today your ultrasound resulted negative for a blood clot. Please follow-up with primary care provider in the next few days. Please come back to the emergency department for any acute concerns such as chest pain, shortness of breath etcetera Prescriptions: No Action aspirin 325 MG tablet 325 mg PO QDAY Qty: 0 RF: 0 azelastine 137 MCG/0.137 ML aerosol,spray 2 spray Intranasal BID Qty: 0 RF: 0 omega 6-ktx-qvp-fish oil [Fish Oil] 1,000 MG capsule 1,000 mg PO Q DAY Qty: 0 RF: 0 hydrochlorothiazide 25 mg tablet 12.5 mg PO QDAY Qty: 45 RF: 3 atorvastatin [Lipitor] 20 mg tablet 20 mg PO HS Qty: 90 RF: 3 metronidazole [Metrogel] 1 % gel 1 applictn TOP BID Qty: 60 RF: 6 niacin 100 mg tablet 100 mg PO DAILY RF: 0 glucosamine-chondroitin 900 mg tablet PO RF: 0 methylcellulose (laxative) [Citrucel] 500 mg tablet 500 mg PO BID RF: 0 Lactobac 41-B.bifid,lactis-FOS [Ultimate Probiotic-10] 111 mg (25 billion cell) capsule See Rx Instructions PO .COMPLEX RF: 0 Referrals: Radha Oro ARNP [Primary Care Provider] - <Kris Ralph DO - Last Filed: 04/13/20 16:25> Cosign ED Attending Cosignature Attestation: Dr Ralph Co-Sign Statement: I was available for consultation during this patient's emergency department visit. This chart is signed by myself for administrative purposes only. I did not have direct contact with this patient during this visit. They were seen independently by the APC.
== END 2020-04-13 13:07 | disposition home or self-care (01) ==
PROVIDERS: Emergency Medicine; Emergency Provider Nurse Practitioner Family; PCP Nurse Practitioner; Referring Provider Nurse Practitioner
DX: R22.42 Localized swelling, mass and lump, left lower limb (principal); R73.9 Hyperglycemia, unspecified; K21.9 Gastro-esophageal reflux disease without esophagitis; Z79.82 Long term (current) use of aspirin
CPT/HCPCS: 36415; 80048; 83880; 85025; 85610; 85730; 93971; 99283; 99284

== ENCOUNTER → 2021-03-28 14:58 | Outpatient (CLI) | payer OTHER, SELFPAY ==
--- NOTE | 2021-03-28 14:59 | DI.MG.S_ITS ---
BILATERAL DIGITAL SCREENING MAMMOGRAM 3D/2D WITH CAD: 03/28/2021 CLINICAL: Routine screening. Comparison is made to exams dated: 06/20/2017 mammogram, 07/12/2014 mammogram, and 06/18/2013 mammogram - outside location. The tissue of both breasts is heterogeneously dense. This may lower the sensitivity of mammography. Current study was also evaluated with a Computer Aided Detection (CAD) system. No significant masses, calcifications, or other findings are seen in either breast. There has been no significant interval change. IMPRESSION: NEGATIVE There is no mammographic evidence of malignancy. A 1 year screening mammogram is recommended. This exam was interpreted at Station ID: [id number]. NOTE: For mammograms, a report in lay terms will be sent to the patient. Approximately 15% of breast malignancies will not be visualized mammographically. In the management of a palpable breast mass, a negative mammogram must not discourage biopsy of a clinically suspicious lesion. Electronically Signed By: Mehreen vasquez/alcira:03/28/2021 17:05:21 letter sent: Normal Exam ACR BI-RADS Category 1: Negative [id number]
== END ==
PROVIDERS: PCP Nurse Practitioner; Referring Provider Nurse Practitioner; Visit Provider Nurse Practitioner
DX: Z12.31 Encounter for screening mammogram for malignant neoplasm of breast (principal)
CPT/HCPCS: 77063; 77067

== ENCOUNTER → 2021-07-17 07:21 | Outpatient (CLI) | payer OTHER, SELFPAY ==
[2021-07-17 09:02] LABS: Hematocrit 38.9 % (36-46); Hemoglobin 13.2 g/dL (12.0-16.0); Mean Corpuscular HGB Conc 33.9 % (30-36); Mean Corpuscular Hemoglobin 30.2 PG (26-34); Platelet Count 259 X10^3/uL (150-400); Red Blood Cell Count 4.37 X10^6/uL (4.0-5.2); Red Cell Distribution Width 14.1 % (11.6-14.8); White Blood Cell Count 3.6 X10^3/uL (4.5-11.0)
[2021-07-17 09:49] LABS: Alanine Aminotransferase 41 IU/L (<35); Albumin 4.4 g/dL (3.5-5.0); Albumin Globulin Ratio 1.2 (1.0-2.8); Alkaline Phosphatase 55 U/L (38-126); Aspartate Aminotransferase 44 IU/L (14-36); Bilirubin Total 0.3 mg/dL (0.2-1.3); Blood Urea Nitrogen 26 mg/dL (7-17); Calcium 9.6 mg/dL (8.4-10.2); Carbon Dioxide 29 mmol/L (22-32); Chloride 103 mmol/L (98-107); Cholesterol 204 mg/dL (140-199); Estimated Glomerular Filt Rate 44.3 mL/min (>60); Globulin 3.6 g/dL (1.7-4.1); Glucose 92 mg/dL (70-100); HDL Cholesterol 95 mg/dL (40-60); HEMOLYSIS < 15 (0-50); LDL Cholesterol Calculated 75 mg/dL (<100); Potassium 4.3 mmol/L (3.4-5.1); Sodium 141 mmol/L (137-145); Triglycerides 170 mg/dL (35-150)
[2021-07-17 10:00] LABS: Free T3, Triiodothyronine Free 2.73 pg/mL (2.77-5.27); Free T4, Direct Thyroxine 1.17 ng/dL (0.78-2.19)
[2021-07-17 10:13] LABS: Thyroid Stimulating Hormone 2.15 uIU/mL (0.47-4.68)
[2021-07-17 19:33] LABS: Creatinine Urine Random 96.7 mg/dL; Microalbumi Creatinin Ratio Ur 40.3 ug/mg CR (<30); Microalbumin Urine Random 3.9 mg/dL (0-1.6)
== END ==
PROVIDERS: PCP Nurse Practitioner; Referring Provider Nurse Practitioner; Visit Provider Nurse Practitioner
DX: Z00.00 Encounter for general adult medical examination without abnormal findings (principal); Z12.11 Encounter for screening for malignant neoplasm of colon
CPT/HCPCS: 36415; 80053; 80061; 82043; 82570; 84439; 84443; 84481; 85027

== ENCOUNTER → 2021-08-28 12:40 | Outpatient (CLI) | payer OTHER, SELFPAY ==
--- NOTE | 2021-08-28 12:42 | DI.RAD.S_ITS ---
PROCEDURE: XR FOOT LT MIN 3V INDICATIONS: rule out fracture TECHNIQUE: 3 views of the foot were acquired. COMPARISON: None. FINDINGS: Bones: No fractures or dislocations. No suspicious bony lesions. Soft tissues: No tibiotalar joint effusion. Achilles tendon appears normal. IMPRESSION: 1. No fracture or dislocation. Dictated by: Ravi Drake M.D. on 08/28/2021 at 16:47 Approved by: Ravi Drake M.D. on 08/28/2021 at 16:48
--- NOTE | 2021-08-28 12:42 | DI.RAD.S_ITS ---
PROCEDURE: XR ANKLE LT MIN 3V INDICATIONS: rule out fracture TECHNIQUE: 3 views of the ankle were acquired. COMPARISON: [facility], CR, XR FOOT LT MIN 3V, 08/28/2021, 12:48. FINDINGS: Bones: No fractures or dislocations. Ankle mortise is normally aligned. No suspicious bony lesions. Soft tissues: No tibiotalar joint effusion. Achilles tendon appears normal. IMPRESSION: 1. No fracture or dislocation. Dictated by: Ravi Drake M.D. on 08/28/2021 at 16:48 Approved by: Ravi Drake M.D. on 08/28/2021 at 16:48
== END ==
PROVIDERS: PCP Nurse Practitioner; Referring Provider Nurse Practitioner; Visit Provider Nurse Practitioner
DX: M25.572 Pain in left ankle and joints of left foot (principal); M79.672 Pain in left foot
CPT/HCPCS: 73610; 73630

== ENCOUNTER → 2023-05-28 08:18 | Outpatient (CLI) | payer OTHER, SELFPAY ==
--- NOTE | 2023-05-28 08:19 | DI.MRI.S_ITS ---
BREAST MRI OF BOTH BREASTS: 05/28/2023 CLINICAL: High Risk of Breast Cancer. PROCEDURE: MR BREAST BI WO/W CON INDICATIONS: High Risk for breast cancer. TECHNIQUE: The patient was placed prone in a dedicated breast imaging coil. Precontrast axial STIR and 3D FLASH without fat saturation sequences were obtained. Both before and after bolus injection of contrast, sequential 1-minute axial 3D FLASH with fat saturation sequences for 3 time points, with subtraction images and maximum intensity projections (MIP's) generated. Delayed sagittal FLASH images with fat saturation were also obtained. Computer-aided detection, including computer algorithm analysis of MRI image data for lesion detection and characterization, pharmacokinetic analysis, with further physician review for interpretation, was performed. COMPARISON: Mammogram 04/23/2023, 03/28/2021 FINDINGS: Image quality: Diagnostic. There is heterogeneous amount of fibroglandular tissue. There is mild symmetric background parenchymal enhancement. Right breast: No suspicious enhancement or lymphadenopathy. Left breast: No suspicious enhancement or lymphadenopathy. IMPRESSION: NEGATIVE No MRI evidence of malignancy. Recommend continue annual mammogram and MRI screening. This exam was interpreted at Station ID: [id number]. Electronically Signed By: Estephania Tucker M.D., PH.D eb/:05/28/2023 13:51:24 letter sent: Normal Exam ACR BI-RADS Category 1: Negative [id number]
== END ==
LOC: MRI 08:19
PROVIDERS: PCP Physician Assistant; Referring Provider Physician Assistant; Visit Provider Physician Assistant
DX: Z91.89 Other specified personal risk factors, not elsewhere classified (principal); Z12.39 Encounter for other screening for malignant neoplasm of breast
CPT/HCPCS: 77049; A9579